=== PATIENT | male | born 1945 | race Caucasian/White ===

== ENCOUNTER → 2018-08-07 | Outpatient (CLI) | payer MEDICARE | END | disposition home or self-care (01) | LOC: CFH 09:00 | PROVIDERS: ATTEND Registered Nurse | DX: K44.9 Diaphragmatic hernia without obstruction or gangrene (principal); E04.2 Nontoxic multinodular goiter | CPT/HCPCS: 71250 ==

== ENCOUNTER 2018-10-24 08:49 | Outpatient (CLI) | payer MEDICARE | END 2018-10-24 23:59 | disposition home or self-care (01) | LOC: RAD 08:49 | PROVIDERS: ATTEND Otolaryngology | DX: E06.5 Other chronic thyroiditis (principal); E04.2 Nontoxic multinodular goiter | CPT/HCPCS: 10005; 10006; 76536; 76942; 88172; 88173 ==

== ENCOUNTER 2018-11-09 09:16 | Emergency (ER) | payer MEDICARE ==
[~2018-11-09] VITALS: Ht 167.6 cm; Wt 77.4 kg
[2018-11-09] MEDS ORDERED: L.E.T SOLUTION TP ONE ×3 (09:37→10:00)
[2018-11-09 09:50] LABS: BASOPHILS # (AUTO) 0.03 x10^3/uL (0-0.1); BASOPHILS % (AUTO) 0 % (0-1); EOSINOPHILS # (AUTO) 0.16 x10^3/uL (0-0.4); EOSINOPHILS % (AUTO) 2 % (1-7); LYMPHOCYTES # (AUTO) 2.02 x10^3/uL (1-3.4); LYMPHOCYTES % (AUTO) 26 % (22-44); MD NO; MEAN CORPUSCULAR HEMOGLOBIN 29.3 pg (27.5-34.5); MEAN CORPUSCULAR HGB CONC 33.7 g/dL (33.2-36.2); MEAN CORPUSCULAR VOLUME 86.9 fL (81-97); MEAN PLATELET VOLUME 8.4 fL (7.4-10.4); MONOCYTES % (AUTO) 7 % (2-9); NEUTROPHILS # (AUTO) 4.95 x10^3/uL (1.8-6.8); NEUTROPHILS % (AUTO) 65 % (42-75); PLATELET COUNT 198 x10^3/uL (130-400); RED BLOOD COUNT 5.88 x10^6/uL (4.38-5.82); RED CELL DISTRIBUTION WIDTH 13.7 % (9.4-14.8)
[2018-11-09 10:02] LABS: ALBUMIN 3.8 g/dL (3.4-5.0); ANION GAP 6 mmol/L (5-15); CALCIUM 9.5 mg/dL (8.5-10.1); CHLORIDE 105 mmol/L (98-107); CREATININE 1.05 mg/dL (0.7-1.3)
--- NOTE | 2018-11-09 10:28 | NUR ---
Late note entry for 0941: Pt resting on [email or web address]. ANA. Pt states, "For about a week my toe has looked like this (right second toe). I am a type two diabetic, it's borderline and maintained by exercise and diet."
[2018-11-09] MEDS ORDERED: ATEN25TA PO (10:35)
[2018-11-09] MEDS ORDERED: LISI-167 PO (10:35)
[2018-11-09] MEDS ORDERED: AMLO10TA8 PO (10:35)
[2018-11-09 10:36] VITALS: BP 167/97
--- NOTE | 2018-11-09 11:18 | NUR ---
Patient given discharge instructions and they have confirmed that they understand the instructions. Patient ambulatory with steady gait. Pt left with all personal belongings, discharge paperwork, and prescriptions.
== END 2018-11-09 11:21 | disposition home or self-care (01) ==
LOC: ED 11:10
DX: L03.031 Cellulitis of right toe (principal); I10 Essential (primary) hypertension; E11.9 Type 2 diabetes mellitus without complications
CPT/HCPCS: 10060; 36415; 80048; 82040; 85025; 99284